=== PATIENT | male | born 1980 | race Caucasian/White ===

== ENCOUNTER 2020-07-03 20:59 | Emergency (ER) | payer BC ==
--- NOTE | 2020-07-03 21:42 | EDM.PDOC ---
ED HPI GENERAL MEDICAL PROBLEM - General Chief Complaint: Skin Complaint Stated Complaint: FISH HOOK RT HAND Time Seen by Provider: 07/03/20 21:33 Source of Information: Reports: Patient History Limitations: Reports: No Limitations - History of Present Illness INITIAL COMMENTS - FREE TEXT/NARRATIVE: Nils is a 39-year-old male presenting to the ED with a fishhook in his right hand. Patient had a fish on his [place] and the vacant trouble hook got lodged in his right dorsal index finger in the proximal segment. Patient has intact range of motion of the finger and denies any distal numbness. - Related Data Allergies Allergy/AdvReac Type Severity Reaction Status Date / Time No Known Allergies Allergy Verified 07/03/20 21:31 Home Meds: Home Meds NK [No Known Home Meds] 07/03/20 [History] Past Medical History Hematologic History: Reports: None - Past Surgical History Musculoskeletal Surgical History: Reports: Arthroscopic Knee, Shoulder Surgery ED ROS GENERAL - Review of Systems Review Of Systems: See Below Musculoskeletal: Reports: Hand Pain Skin: Reports: Other ([place] in the proximal dorsal right middle finger) Neurological: Reports: No Symptoms ED EXAM, SKIN/RASH Exam: See Below Exam Limited By: No Limitations General Appearance: Alert, No Apparent Distress Extremities: Normal Range of Motion, Normal Capillary Refill, Other (Trouble hook in the dorsal proximal left middle finger. Patient has intact range of motion without movement of the hook signifying sparing of the tendon and tendon sheath. The hook is embedded just under the skin by palpation.) Neurological: Alert, Oriented, Normal Cognition, No Motor/Sensory Deficits Skin: Warm, Dry, Wound/Incision (Puncture wound secondary to the fishhook on the dorsal proximal right middle finger.) Location, Skin: Upper Extremity, Right ED SKIN PROCEDURES - Foreign Body Removal Indication:: Embedded fishhook in the dorsal proximal right middle finger Consent Obtained:: Patient Performing Doctor:: Harmeet Amanda Foreign Body Other Location Comment:: Dorsal proximal right middle finger Anesthesia Type: Local Complications:: No Comments:: The fishhook was advanced through the skin and the cora was crimped. Using a needle mechanic welder truck driver I was able to then retract the fishhook back through the original tract and out through the skin. The area was cleansed with water and a dressing was applied. Course - Vital Signs Last Recorded V/S: Last Vital Signs Temp 36.6 C 07/03/20 21:35 Pulse 79 07/03/20 21:35 Resp 16 07/03/20 21:35 BP 145/92 H 07/03/20 21:35 Pulse Ox 97 07/03/20 21:35 - Re-Assessments/Exams Free Text/Narrative Re-Assessment/Exam: 07/03/20 21:48 the fishhook was embedded just under the skin sparing the extensor tendon of the right middle finger. The hook was removed after cramping the cora limiting the size of the tract. The area was dressed and we will put the patient on cephalexin 500 mg 3 times daily for 5 days for prophylaxis of infection. At this time patient is suitable for discharge home in satisfactory condition. Indications to return discussed. Departure - Departure Time of Disposition: 21:44 Disposition: Home, Self-Care 01 Clinical Impression: [place] injury to finger Qualifiers: Encounter type: initial encounter Laterality: right Qualified Code(s): S69.91XA - Unspecified injury of right wrist, hand and finger(s), initial encounter - Discharge Information Referrals: PCP,None [Primary Care Provider] - Forms: ED Department Discharge Care Plan Goals: I am placing you on an antibiotic called cephalexin. Please take 1 capsule 3 times a day for the next 5 days to prevent infection. This will likely get a little more sore over the next day or 2 but then should see improvement. Keep the area clean and dry. Good luck with future fishing. Sepsis Event Note (ED) - Focused Exam Vital Signs: Vital Signs Temp Pulse Resp BP Pulse Ox 07/03/20 21:35 36.6 C 79 16 145/92 H 97 07/03/20 21:29 36.6 C 79 16 145/92 H 97 - Problem List & Annotations (1) [place] injury to finger SNOMED Code(s): 16358070 Code(s): S69.90XA - UNSP INJURY OF UNSP WRIST, HAND AND FINGER(S), INIT ENCNTR Status: Acute Priority: Low Current Visit: Yes Qualifiers: Encounter type: initial encounter Laterality: right Qualified Code(s): S69.91XA - Unspecified injury of right wrist, hand and finger(s), initial encounter - Problem List Review Problem List Initiated/Reviewed/Updated: Yes
== END 2020-07-03 22:33 | disposition home or self-care (01) ==
LOC: JP.ED 20:59
DX: S60.452A Superficial foreign body of right middle finger, initial encounter (principal); W45.8XXA Other foreign body or object entering through skin, initial encounter
CPT/HCPCS: 99283